=== PATIENT | male | born 1995 | race Caucasian/White ===

== ENCOUNTER → 2017-08-28 08:29 | Outpatient (CLI) | payer OTHER ==
[2010-10-25 08:57] VITALS: BMI 32.9
== END | disposition home or self-care (01) ==
LOC: D.MRI 08:29
DX: C41.0 Malignant neoplasm of bones of skull and face (principal); G43.909 Migraine, unspecified, not intractable, without status migrainosus

== ENCOUNTER → 2017-09-05 08:29 | Outpatient (CLI) | payer OTHER ==
[2010-10-25 08:57] VITALS: BMI 32.9
== END | disposition home or self-care (01) ==
LOC: D.CT 08:29
DX: R93.8 Abnormal findings on diagnostic imaging of other specified body structures (principal); G43.909 Migraine, unspecified, not intractable, without status migrainosus